=== PATIENT | male | born 1950 | race African-American/Black ===

== ENCOUNTER 2016-10-11 19:55 | Emergency (ER) | payer OTHER ==
[~2016-10-11] VITALS: Ht 190.5 cm; Wt 67.3 kg
[~2016-10-11 19:55] MED LIST: ANTIVERT25 MG PO; BACTRIM,SEPT1 TABLET PO; FENTANYL1 EAC5 TD; FEOSOL325 MG PO; GLUCOPHAGE500 MG PO; LISINOPRIL20 MG PO; LORTAB,VICODIN15 ML PO; MORPHINE SULFAT45 MG PO; OXYCODONE HCL10 MG PO; PRINIVIL5 MG PO; SEPTRA SUSPENS100 M1 PO; THERAGRAN1 TABLET PO; VICODIN,LORT1 TABLET PO; ZOFRAN ODT4 MG PO; Zestril,Prinivil PO
[2016-10-11 21:11] VITALS: BP 166/100
== END 2016-10-11 21:12 | disposition home or self-care (01) ==
LOC: EME 19:55
DX: C14.0 Malignant neoplasm of pharynx, unspecified (principal); Z98.890 Other specified postprocedural states; E11.9 Type 2 diabetes mellitus without complications; I10 Essential (primary) hypertension; Z85.038 Personal history of other malignant neoplasm of large intestine; Z87.891 Personal history of nicotine dependence
CPT/HCPCS: 99281; 99283

== ENCOUNTER 2016-10-24 16:16 | Emergency (ER) | payer OTHER ==
[~2016-10-24] VITALS: Ht 190.5 cm; Wt 66.8 kg
[2016-10-24 17:11] VITALS: BP 160/91
== END 2016-10-24 17:12 | disposition home or self-care (01) ==
LOC: EME 16:16
DX: C14.0 Malignant neoplasm of pharynx, unspecified (principal); E11.9 Type 2 diabetes mellitus without complications; I10 Essential (primary) hypertension; Z85.038 Personal history of other malignant neoplasm of large intestine; Z87.891 Personal history of nicotine dependence
CPT/HCPCS: 99281; 99284; J1100

== ENCOUNTER 2016-11-27 16:02 | Inpatient (IN) | payer OTHER ==
[~2016-11-27] VITALS: Ht 190.5 cm; Wt 68.0 kg
[2016-11-27 17:07] LABS: EOSINOPHIL (%) 0.5 % (0-5); HEMATOCRIT 41.2 % (38.0-50.0); IMMATURE GRANULOCYTE (%) 0.3 % (0.0-0.7); INSTRUMENT ABS NEUTROPHIL CT 4.9 K/uL; LYMPHOCYTE COUNT 0.3 K/uL (1.0-2.8); MCH 27.9 PG (29.0-34.0); MCHC 32.3 G/DL (30.0-36.0); MCV 86.6 FL (86-99); MONOCYTE COUNT 0.9 K/uL (0-0.8); NEUTROPHIL (%) 78.7 % (45-76); NEUTROPHIL COUNT 4.9 K/uL (1.8-6.4); PLATELET COUNT 146 K/uL (156-360); RBC DIS.WIDTH-SD 50.4 % (39-53); RED BLOOD COUNT 4.76 M/uL (4.00-5.50); WHITE BLOOD COUNT 6.2 K/uL (4.1-10.2)
[2016-11-27 17:16] LABS: CHLORIDE 102 mEq/L (99-109); POTASSIUM 3.8 mEq/L (3.7-5.4); SODIUM 139 mEq/L (136-147)
[2016-11-27 17:18] LABS: GLUCOSE 146 mg/dL (70-99)
[2016-11-27 17:19] LABS: ANION GAP 8 MEQ/L (2-14)
[2016-11-27 17:21] LABS: GFR ESTIMATE (CALCULATED) > 59 mL/min/
[2016-11-27 17:22] LABS: UREA NITROGEN (BUN) 22 mg/dL (9-23)
[2016-11-27] MEDS ORDERED: OXYCODONE HCL15 MG PO (20:13)
[2016-11-27] MEDS ORDERED: PREDNISONE1 MG/ML PO (20:15)
[2016-11-27] MEDS ORDERED: NYSTATIN100000 UN1 PO (20:16)
[2016-11-28 01:30] VITALS: BP 148/88
[2016-11-28 05:00] VITALS: BP 112/65
[2016-11-28 07:23] LABS: HEMATOCRIT 42.1 % (38.0-50.0); MCH 27.7 PG (29.0-34.0); MCHC 31.6 G/DL (30.0-36.0); MCV 87.7 FL (86-99); MEAN PLAT.VOLUME 13.3 uM^3 (9.0-12.4); PLATELET COUNT 161 K/uL (156-360); RBC DIS.WIDTH-CV 16.2 % (11.8-14.6); RBC DIS.WIDTH-SD 52.3 % (39-53)
[2016-11-28 07:27] VITALS: BP 143/80
[2016-11-28 07:30] LABS: WHITE BLOOD COUNT 8.8 K/uL (4.1-10.2)
[2016-11-28 07:35] LABS: ALKALINE PHOSPHATASE 96 IU/L (3-129); ANION GAP 9 MEQ/L (2-14); CHLORIDE 104 MEQ/L (99-109); GFR ESTIMATE (CALCULATED) > 59 mL/min/; GLUCOSE 170 mg/dL (70-99); SAMPLE HEMOLYSIS CHECK 0; SAMPLE ICTERIC CHECK 0; SAMPLE LIPEMIA CHECK 0; SODIUM 141 MEQ/L (136-147); TOTAL BILIRUBIN 1.1 MG/DL (0.0-1.0); UREA NITROGEN (BUN) 24 mg/dL (9-23)
[2016-11-28 07:36] LABS: POTASSIUM 5.6 MEQ/L (3.7-5.4)
[2016-11-28 15:54] VITALS: BP 144/79
[2016-11-28 19:20] VITALS: BP 128/76
[2016-11-29 00:26] VITALS: BP 126/72
[2016-11-29 04:45] VITALS: BP 116/70
[2016-11-29 09:18] VITALS: BP 127/72
[2016-11-29 09:37] LABS: ANION GAP 5 MEQ/L (2-14); CHLORIDE 102 MEQ/L (99-109); GFR ESTIMATE (CALCULATED) > 59 mL/min/; POTASSIUM 5.2 MEQ/L (3.7-5.4); SAMPLE HEMOLYSIS CHECK 0; SAMPLE ICTERIC CHECK 0; SAMPLE LIPEMIA CHECK 0; SODIUM 138 MEQ/L (136-147); UREA NITROGEN (BUN) 34 mg/dL (9-23)
[2016-11-29 09:47] LABS: GLUCOSE 295 mg/dL (70-99)
[2016-11-29] MEDS ORDERED: DIFLUCAN 440 MG/1 ML GT (11:01)
[2016-11-29] MEDS ORDERED: MORPHINE S10 MG/5 ML GT (11:01)
[2016-11-29] MEDS ORDERED: LISINOPRIL10 MG GT (11:01)
[2016-11-29] MEDS ORDERED: OXYCODONE H5 MG/5 ML GT ×3 (11:01→14:59)
[2016-11-29] MEDS ORDERED: AUGMENTIN80 MG/ML PO (11:01)
[2016-11-29 12:03] VITALS: BP 141/68
[2016-11-29] MEDS ORDERED: AUGMENTIN80 MG/ML GT (12:34)
== END 2016-11-29 16:25 | disposition home or self-care (01) | DRG 206 ==
LOC: EME 16:02 → EDOF 23:23 → 4EAST 23:23
PROVIDERS: Emergency Medicine; Internal Medicine; Physician Assistant
PROC: 0CJY8ZZ Inspection of Mouth and Throat, Via Natural or Artificial Opening Endoscopic (ICD-10-PCS; principal; 2016-11-28)
DX: J98.8 Other specified respiratory disorders (principal); R73.09 Other abnormal glucose; I10 Essential (primary) hypertension; R60.9 Edema, unspecified; Z85.818 Personal history of malignant neoplasm of other sites of lip, oral cavity, and pharynx; Z93.1 Gastrostomy status; R13.10 Dysphagia, unspecified; Z85.05 Personal history of malignant neoplasm of liver; Z92.21 Personal history of antineoplastic chemotherapy; Z92.3 Personal history of irradiation; B37.0 Candidal stomatitis; R79.89 Other specified abnormal findings of blood chemistry; Z85.038 Personal history of other malignant neoplasm of large intestine; E87.5 Hyperkalemia; R47.1 Dysarthria and anarthria; I73.9 Peripheral vascular disease, unspecified; Z87.891 Personal history of nicotine dependence; Z86.19 Personal history of other infectious and parasitic diseases; J02.9 Acute pharyngitis, unspecified; K14.0 Glossitis; G89.29 Other chronic pain; M54.9 Dorsalgia, unspecified
CPT/HCPCS: 70491; 71010; 80048; 80053; 84132 91; 85025; 85027; 86160 90; 99281; 99285; J0295; J1100; J1644; J1815; J2270; J2405; J7030; J7050

== ENCOUNTER → 2016-11-30 | Outpatient (CLI) | payer OTHER ==
[~2016-11-30] MED LIST changes: +AUGMENTIN80 MG/ML GT; +AUGMENTIN80 MG/ML PO; +DIFLUCAN 440 MG/1 ML GT; +LISINOPRIL10 MG GT; +MORPHINE S10 MG/5 ML GT; +NYSTATIN100000 UN1 PO; +OXYCODONE H5 MG/5 ML GT; +OXYCODONE HCL15 MG PO; +PREDNISONE1 MG/ML PO
== END | disposition home or self-care (01) ==
LOC: AMB 14:45
PROC: 0D20XUZ Change Feeding Device in Upper Intestinal Tract, External Approach (ICD-10-PCS; principal; 2016-11-30)
DX: K94.23 Gastrostomy malfunction (principal); R13.10 Dysphagia, unspecified; Z85.818 Personal history of malignant neoplasm of other sites of lip, oral cavity, and pharynx; Z85.89 Personal history of malignant neoplasm of other organs and systems; Z85.038 Personal history of other malignant neoplasm of large intestine; Z92.21 Personal history of antineoplastic chemotherapy; Z92.3 Personal history of irradiation
CPT/HCPCS: 99211

== ENCOUNTER 2017-01-08 13:05 | Emergency (ER) | payer OTHER ==
[~2017-01-08] VITALS: Ht 188 cm; Wt 65.0 kg
[2017-01-08 13:50] LABS: MCH 28.7 PG (29.0-34.0); MCHC 32.3 G/DL (30.0-36.0); MCV 88.8 FL (86-99); MEAN PLAT.VOLUME 12.5 uM^3 (9.0-12.4); PLATELET COUNT 132 K/uL (156-360); RBC DIS.WIDTH-CV 15.9 % (11.8-14.6); RBC DIS.WIDTH-SD 52.2 % (39-53); RED BLOOD COUNT 4.39 M/uL (4.00-5.50); WHITE BLOOD COUNT 6.9 K/uL (4.1-10.2)
[2017-01-08 14:02] LABS: CHLORIDE 98 mEq/L (99-109); POTASSIUM 4.7 mEq/L (3.7-5.4); SODIUM 136 mEq/L (136-147)
[2017-01-08 14:03] LABS: GLUCOSE 338 mg/dL (70-99)
[2017-01-08 14:05] LABS: ANION GAP 7 MEQ/L (2-14)
[2017-01-08 14:07] LABS: GFR ESTIMATE (CALCULATED) > 59 mL/min/
[2017-01-08 14:08] LABS: UREA NITROGEN (BUN) 15 mg/dL (9-23)
[2017-01-08 14:14] LABS: TROP-I INTERPRETATION NEGATIVE; TROPONIN-I < 0.01 ng/mL (0.0-0.30)
[2017-01-08 15:41] LABS: TROP-I INTERPRETATION NEGATIVE; TROPONIN-I < 0.01 ng/mL (0.0-0.30)
[2017-01-08 16:07] VITALS: BP 155/91
== END 2017-01-08 16:41 | disposition home or self-care (01) ==
LOC: EME 13:05
PROVIDERS: Emergency Medicine
DX: R94.31 Abnormal electrocardiogram [ECG] [EKG] (principal); Z87.891 Personal history of nicotine dependence; E11.9 Type 2 diabetes mellitus without complications; I10 Essential (primary) hypertension; C02.9 Malignant neoplasm of tongue, unspecified; Z85.038 Personal history of other malignant neoplasm of large intestine; Z85.818 Personal history of malignant neoplasm of other sites of lip, oral cavity, and pharynx
CPT/HCPCS: 71010; 80048; 84484; 85027; 93005; 99281; 99284